=== PATIENT | female | born 1990 | race Caucasian/White ===

== ENCOUNTER 2016-11-20 12:08 | Emergency (ER) | payer SELFPAY ==
[2016-11-20 12:16] VITALS: RESP 18; TEMP 98.2
--- NOTE | 2016-11-20 13:03 | C.PDOC ---
History Of Present Illness 26 year old patient presents to the ED complaining of intermittent lower abdominal pain associated with constipation for the past month. Patient also complains of not having her menstrual cycle for the past 4 months. Patient notes her last bowel movement of hard stool this morning. Patient took gas relief OTC medication once with no relief. She took an at-home test 2 weeks ago which was negative. Patient notes her menstrual cycle is usually irregular. Patient has a history of 1 . Patient denies nausea, vomiting , back pain, vaginal bleeding or discharge. Time Seen by Provider: 11/20/16 12:20 Chief Complaint (Nursing): Female Genitourinary History Per: Patient History/Exam Limitations: no limitations Onset/Duration Of Symptoms: Intermittent Episodes (1 month) Current Symptoms Are (Timing): Still Present Severity: Mild Pain Scale Rating Of: 2 Recent travel outside of the [place]: No Past Medical History Reviewed: Historical Data, Nursing Documentation, Vital Signs Vital Signs: Last Vital Signs Temp 98.2 F 11/20/16 12:13 Pulse 78 11/20/16 13:44 Resp 18 11/20/16 13:44 BP 120/71 11/20/16 13:44 Pulse Ox 99 11/20/16 13:44 - Medical History PMH: No Chronic Diseases Surgical History: Family History: States: Unknown Family Hx - Social History Hx Alcohol Use: No Hx Substance Use: No - Immunization History Hx Tetanus Toxoid Vaccination: No Hx Influenza Vaccination: No Hx Pneumococcal Vaccination: No Review Of Systems Except As Marked, All Systems Reviewed And Found Negative. Gastrointestinal: Positive for: Abdominal Pain, Constipation. Negative for: Nausea, Vomiting, Rectal Pain Genitourinary: Negative for: Dysuria, Frequency, Vaginal Discharge, Vaginal Bleeding, Pelvic Pain Musculoskeletal: Negative for: Back Pain Physical Exam - Physical Exam Appears: Non-toxic, No Acute Distress Skin: Warm, Dry Head: Atraumatic, Normacephalic Eye(s): bilateral: Normal Inspection, EOMI Neck: Normal ROM, Supple Chest: Symmetrical Cardiovascular: Rhythm Regular, No Murmur Respiratory: Normal Breath Sounds, No Accessory Muscle Use, No Wheezing Gastrointestinal/Abdominal: Soft, No Tenderness, No Mass, No Distention, No Guarding, No Rebound Back: Normal Inspection, No CVA Tenderness Extremity: Normal ROM Neurological/Psych: Oriented x3, Normal Speech Gait: Steady ED Course And Treatment O2 Sat by Pulse Oximetry: 97 (RA) Pulse Ox Interpretation: Normal Medical Decision Making Medical Decision Making: Impression: 26 year old patient with lower abdominal pain associated with constipation Plan: * POC test * Reassess and disposition Progress: test was negative Patient appears well and in no acute distress. Abdomen soft and nontender. Explain to patient test was negative and she should follow up with ob/ peripatologist for further evaluation. Also recommend increase in fluids and fiber to help with constipation. Disposition Counseled Patient/Family Regarding: Diagnosis, Need For Followup, Rx Given - Disposition Referrals: [facility] [Outside] [facility] [Outside] Disposition: HOME/ ROUTINE Disposition Time: 13:03 Condition: GOOD Additional Instructions: Please follow up with clinic pilot captain for further evaluation of irregular menstrual cycle Take colace up to 3 times per day to help soften stool Take magnesium citrate as laxative once Prescriptions: Magnesium Citrate [[facility] Magnesium Citrate] 300 ml PO ONCE #1 bottle Docusate [Colace] 100 mg PO TID #60 cap Instructions: Dysfunctional Uterine Bleeding (ED), Constipation (DC) - POA Present On Arrival: None - Clinical Impression Clinical Impression: Constipation, Irregular menstrual cycle - PA / WATER TRAINER / Resident Statement MD/DO has reviewed & agrees with the documentation as recorded. - Scribe Statement The provider has reviewed the documentation as recorded by the Scribe Bethanie Khan All medical record entries made by the Scribe were at my direction and personally dictated by me. I have reviewed the chart and agree that the record accurately reflects my personal performance of the history, physical exam, medical decision making, and the department course for this patient. I have also personally directed, reviewed, and agree with the discharge instructions and disposition.
[2016-11-20 13:44] VITALS: BP 120/71; PULSE 78
[2016-11-20 15:31] VITALS: O2SAT 97
== END 2016-11-20 13:45 | disposition home or self-care (01) ==
LOC: C.ER 12:08
DX: K59.00 Constipation, unspecified (principal); N92.6 Irregular menstruation, unspecified